=== PATIENT | female | born 1970 | race American Indian/Alaskan Native ===

== ENCOUNTER 2019-10-28 10:54 | Emergency (ER) | payer SELFPAY ==
[2019-10-28 12:45] VITALS: BP 115/58
--- NOTE | 2019-10-28 12:55 | Emergency Department Report ---
HPI - General Chief Complaint: Dental/Oral - HPI HPI: 49 yo AA F presents to the emergency dept with pain to the left upper tooth for the past two days. No fever, drooling, trismus. She attempted to contact a dentist and has an appt next friday but says she is in too much pain. 8/10 in intensity. She has been using Tylenol for her symptoms without any relief. Non- smoker. ED Past Medical Hx - Past Medical History Previous Medical History?: No - Surgical History Past Surgical History?: No - Social History Smoking Status: Never Smoker Substance Use Type: None - Medications Home Medications: Home Medications Medication Instructions Recorded Confirmed Last Taken Type Ibuprofen [Motrin 800 MG tab] 800 mg PO Q8HR PRN #20 tablet 10/28/19 Unknown Rx Penicillin Vk [Veetids TAB] 250 mg PO QID #28 tablet 10/28/19 Unknown Rx ED Review of Systems ROS: Stated complaint: TOOTH PAIN Other details as noted in HPI Comment: All other systems reviewed and negative Constitutional: denies: chills, fever ENT: dental pain. denies: throat pain Respiratory: denies: shortness of breath Skin: denies: rash, lesions Neurological: denies: headache, weakness Physical Exam - Physical Exam Vital Signs: Vital Signs 10/28/19 10:58 Temperature 98.0 F Pulse Rate 62 Respiratory 18 Rate Blood Pressure 115/58 O2 Sat by Pulse 96 Oximetry Physical Exam: GENERAL: The patient is well-developed well-nourished. HEENT: Normocephalic. Atraumatic. Patient has moist mucous membranes. Posterior pharynx is clear without drooling or trismus. When the patient takes out her partial bridge she has very few teeth left to the upper jaw/maxilla. The patient has a broken and necrotic tooth to the left upper jaw about tooth #6 or 7. There is tenderness to palpation around this tooth but no visible or palpable abscess. EYES: Extraocular motions are intact. Pupils equal and reactive to light bilaterally. NECK: Supple. Trachea is midline. SKIN:Skin is warm and dry. . NEURO: The patient is awake, alert, and oriented. The patient is cooperative. The patient has no focal neurologic deficits. Normal speech. MUSCULOSKELETAL: There is no tenderness or deformity. There is no evidence of acute injury. ED Course Vital Signs 10/28/19 10:58 Temperature 98.0 F Pulse Rate 62 Respiratory 18 Rate Blood Pressure 115/58 O2 Sat by Pulse 96 Oximetry ED Medical Decision Making - Medical Decision Making Vital signs stable. There is tenderness to palpation but no visible or palpable abscess around the affected tooth. However, the patient has been trying to get in to see a dentist, even an emergency dentist, and has an appointment coming up next Friday. As she is quite tender to palpation there is the potential that she is starting to develop an infection or underlying abscess that is not yet apparent. For this reason, the patient will be treated with antibiotics. She has been instructed to attempt to move up her dental appointment, but she should go to the closest emergency Department with any worsening of her symptoms or with any acute distress. - Differential Diagnosis toothache, dental abscess, gingivitis Critical Care Time: No Critical care attestation.: If time is entered above; I have spent that time in minutes in the direct care of this critically ill patient, excluding procedure time. ED Disposition Clinical Impression: Toothache Disposition: TO HOME OR SELFCARE Is pt being admited?: No Condition: Stable Instructions: Dental Caries (ED), Toothache (ED) Additional Instructions: Please follow up with the dentist on Friday as previously scheduled. Return tot he emergency department with any worsening of your symptoms or any acute distress. Prescriptions: Ibuprofen [Motrin 800 MG tab] 800 mg PO Q8HR PRN #20 tablet PRN Reason: Pain , Severe (7-10) Penicillin Vk [Veetids TAB] 250 mg PO QID #28 tablet Referrals: Dentist, Your [Other] - 3-5 Days Forms: Work/School Release Form(ED) Time of Disposition: 12:55
== END 2019-10-28 12:50 | disposition home or self-care (01) ==
LOC: ED 10:54
DX: K08.89 Other specified disorders of teeth and supporting structures (principal); Z79.899 Other long term (current) drug therapy
CPT/HCPCS: 99282